=== PATIENT | female | born 1980 | race Caucasian/White ===

== ENCOUNTER 2017-09-03 11:25 | Emergency (ER) | payer OTHER ==
[2017-09-03] MEDS ORDERED: Albuterol-Ipratrop 3 mg / 0.5 (3 ml) UD ONE ×2 (11:44→12:58)
--- NOTE | 2017-09-03 12:04 | C.PDOC ---
History Of Present Illness 36 years old female with PMH asthma complains of shortness of breath that began last night. She states she ran out of albuterol. Denies fever or chest pain. Time Seen by Provider: 09/03/17 11:47 Chief Complaint (Nursing): Shortness Of Breath History Per: Patient History/Exam Limitations: no limitations Onset/Duration Of Symptoms: Days (1) Current Symptoms Are (Timing): Still Present Associated Symptoms: denies: Fever Recent travel outside of the [place]: No Past Medical History Reviewed: Historical Data, Nursing Documentation, Vital Signs Vital Signs: Last Vital Signs Temp Pulse 85 09/03/17 12:45 Resp 18 09/03/17 12:45 BP 99/60 L 09/03/17 12:45 Pulse Ox 98 09/03/17 12:45 - Medical History PMH: Asthma - [facility] Procedures REMOV INTRALUM EAR FB (05/01/14) Family History: States: Unknown Family Hx - Social History Hx Tobacco Use: No Hx Alcohol Use: No Hx Substance Use: No - Immunization History Hx Tetanus Toxoid Vaccination: No Hx Influenza Vaccination: No Hx Pneumococcal Vaccination: No Review Of Systems Constitutional: Negative for: Fever, Chills Respiratory: Positive for: Shortness of Breath, Wheezing. Negative for: Cough Gastrointestinal: Negative for: Nausea, Vomiting, Abdominal Pain, Diarrhea Skin: Negative for: Rash Neurological: Negative for: Weakness, Numbness Physical Exam - Physical Exam Appears: Well, Non-toxic, No Acute Distress Skin: Warm, Dry Head: Atraumatic, Normacephalic Eye(s): bilateral: Normal Inspection, EOMI Ear(s): Bilateral: Normal Nose: Normal, No Discharge, No Epistaxis Oral Mucosa: Moist Throat: Normal, No Erythema, No Exudate Neck: Supple Chest: Symmetrical, No Tenderness Cardiovascular: Rhythm Regular Respiratory: No Decreased Breath Sounds, No Rales, No Rhonchi, Wheezing ( expiratory) Gastrointestinal/Abdominal: No Rebound Extremity: Bilateral: Atraumatic, Normal Color And Temperature, Normal ROM Neurological/Psych: Oriented x3, Normal Speech Gait: Steady Medical Decision Making Medical Decision Making: Administered Duoneb treatment x3 and predinisone On re-eval, patient has no fever and reports feeling better. Lung sounds have improved, no longer wheezing and peak flow better. Patient feels comfortable going home and will be discharged. Rx given. Patient given follow up instructions. Instructed to return to ER if symptoms worsen or new symptoms arise. Disposition Counseled Patient/Family Regarding: Diagnosis, Need For Followup, Rx Given - Disposition Disposition: HOME/ ROUTINE Disposition Time: 13:28 Condition: STABLE Additional Instructions: Follow up with your primary medical doctor or clinic in 2-5 days for further evaluation. Take medications as prescribed. Return to the emergency department at any time if symptoms persist or worsen. Vaya a el ico ortopdico clnica en 1-3 laguna sin falta, para mas evaluacin. Exline los medicamentos tran indicado. Prescriptions: Albuterol 0.083% [Albuterol 0.083% Inhal Veena (2.5 mg/3 ml) UD] 2.5 mg IH Q4 # 100 neb Albuterol HFA [Ventolin HFA 90 mcg/actuation (8 g)] 1 puff IH Q4 #1 puff Instructions: Asthma in Adults Forms: [employer] (Burmese) Print Language: CANADIAN - POA Present On Arrival: None - Clinical Impression Clinical Impression: Active asthma - PA / DIRECTOR APPAREL / Resident Statement MD/DO has reviewed & agrees with the documentation as recorded. - Scribe Statement The provider has reviewed the documentation as recorded by the Neelimaibdung Morales All medical record entries made by the Neel were at my direction and personally dictated by me. I have reviewed the chart and agree that the record accurately reflects my personal performance of the history, physical exam, medical decision making, and the department course for this patient. I have also personally directed, reviewed, and agree with the discharge instructions and disposition.
[2017-09-03] MEDS ORDERED: Albuterol-Ipratrop 3 mg / 0.5 (3 ml) UD IH SCH (12:15)
[2017-09-03 12:45] VITALS: BP 99/60; PULSE 85; RESP 18; O2SAT 98
== END 2017-09-03 13:38 | disposition home or self-care (01) ==
LOC: C.ER 11:25
DX: J45.909 Unspecified asthma, uncomplicated (principal)

== ENCOUNTER 2017-09-10 00:19 | Emergency (ER) | payer SELFPAY ==
[2017-09-10] MEDS ORDERED: Albuterol-Ipratrop 3 mg / 0.5 (3 ml) UD ONE (00:38)
[2017-09-10] MEDS ORDERED: Albuterol-Ipratrop 3 mg / 0.5 (3 ml) UD INH STA (00:39)
--- NOTE | 2017-09-10 00:40 | C.PDOC ---
History Of Present Illness Patient is a 36 y/o female who presents to the ED with a complaint of SOB worsening over the last 2 weeks. Patient notes worsening symptoms tonight, prompting visit. Currently speaking in complete sentences in ED, admitting to tolerating PO. Patient has no other physical complaints at this time. Time Seen by Provider: 09/10/17 00:39 Chief Complaint (Nursing): Respiratory Distress History Per: Patient History/Exam Limitations: no limitations Onset/Duration Of Symptoms: Days (2 weeks), Worse Since Current Symptoms Are (Timing): Still Present Initiating Event: Upper Respiratory Illness Exacerbating Factor(s): Coughing Current Respiratory Medications: See Home Med List Severity: Moderate Pain Scale Rating Of: 4 Associated Symptoms: denies: Fever, Chills, Sweating Reports Recently: Seen In ED, Treated By A Physician Recent travel outside of the [place]: No Additional History Per: Patient Past Medical History Reviewed: Historical Data, Nursing Documentation, Vital Signs Vital Signs: Last Vital Signs Temp 98.4 F 09/10/17 00:31 Pulse 90 09/10/17 00:31 Resp 22 09/10/17 01:23 BP 119/83 09/10/17 00:31 Pulse Ox 95 09/10/17 01:39 - Medical History PMH: Asthma Surgical History: No Surg Hx - [facility] Procedures REMOV INTRALUM EAR FB (05/01/14) Family History: States: No Known Family Hx - Social History Hx Tobacco Use: No Hx Alcohol Use: No Hx Substance Use: No - Immunization History Hx Tetanus Toxoid Vaccination: No Hx Influenza Vaccination: No Hx Pneumococcal Vaccination: No Review Of Systems Constitutional: Negative for: Fever, Chills ENT: Negative for: Throat Pain Cardiovascular: Negative for: Chest Pain Respiratory: Positive for: Shortness of Breath Musculoskeletal: Negative for: Back Pain Skin: Negative for: Rash Neurological: Negative for: Weakness Psych: Negative for: Anxiety Physical Exam - Physical Exam Appears: Non-toxic Skin: Warm, Dry Head: Normacephalic Eye(s): bilateral: Normal Inspection Oral Mucosa: Moist Throat: Other (oropharynx clear) Neck: Supple Chest: Symmetrical Cardiovascular: Rhythm Regular, No Murmur Respiratory: No Accessory Muscle Use, No Rales, No Rhonchi, Wheezing (diffuse ) Gastrointestinal/Abdominal: Soft, No Tenderness, No Distention Back: No CVA Tenderness Extremity: No Tenderness Neurological/Psych: Oriented x3, Normal Speech, Normal Cognition Gait: Steady ED Course And Treatment - Laboratory Results Result Diagrams: 09/10/17 01:14 09/10/17 01:14 ECG: Interpreted By Me, Viewed By Me ECG Rhythm: Sinus Rhythm (72), 1st Degree HB, Nonspecific Changes O2 Sat by Pulse Oximetry: 95 Pulse Ox Interpretation: Normal - Radiology CXR: Interpreted by Me, Viewed By Me Progress Note: Blood work, EKG, and CXR ordered. Nebulizer treatment, duoneb, medrol, and IV fluids administered. Reevaluation Time: 02:53 Reassessment Condition: Improved Critical Care Time - Critical Care Note Total Time (in mins): 30 Documented critical care: time excludes all time spent performing seperately billable procedures. Disposition Counseled Patient/Family Regarding: Studies Performed, Diagnosis, Need For Followup, Rx Given - Disposition Referrals: [facility] [Outside] [facility] [Outside] Disposition: HOME/ ROUTINE Disposition Time: 00:40 Condition: FAIR Additional Instructions: Please return if symptoms recur Prescriptions: Prednisone [Deltasone] 20 mg PO DAILY #5 tablet Instructions: Asthma, Adult (DC) Forms: [employer] (Mongolian) - Clinical Impression Clinical Impression: Exacerbation of asthma - Scribe Statement The provider has reviewed the documentation as recorded by the Scribe Jessica Alvarez All medical record entries made by the Scribe were at my direction and personally dictated by me. I have reviewed the chart and agree that the record accurately reflects my personal performance of the history, physical exam, medical decision making, and the department course for this patient. I have also personally directed, reviewed, and agree with the discharge instructions and disposition.
[2017-09-10] MEDS ORDERED: Sodium Chloride 0.9% 1,000 ML IV ONE (00:50)
[2017-09-10] MEDS ORDERED: Sodium Chloride 0.9% 1,000 ML ONE (01:18)
[2017-09-10 01:21] LABS: BASO # 0.1 K/uL (0.0-0.2); BASO % 1.2 % (0.0-2.0); EOS # 0.8 K/uL (0.0-0.7); EOS % 8.8 % (0.0-4.0); HEMOGLOBIN 13.7 g/dL (11.0-16.0); LYMPH # 2.8 K/uL (1.0-4.3); LYMPH % 32.8 % (20.0-40.0); MEAN CELL VOLUME 91.6 fL (81.0-99.0); MEAN CORPUSCULAR HEMOGLOBIN 31.6 pg (27.0-31.0); MEAN CORPUSCULAR HGB CONC 34.6 g/dL (33.0-37.0); MEAN PLATELET VOLUME 8.1 fL (7.2-11.7); MONO # 0.5 K/uL (0.0-0.8); MONO % 5.9 % (0.0-10.0); NEUT # 4.4 K/uL (1.8-7.0); NEUT % 51.3 % (50.0-75.0); NRBC % 0.1 % (0.0-2.0); RBC 4.33 Mil/uL (3.80-5.20); RED CELL DISTRIBUTION WIDTH 13.2 % (11.5-14.5); WHITE BLOOD COUNT 8.6 K/uL (4.8-10.8)
[2017-09-10 01:30] LABS: ALB/GLOB RATIO 1.2 (1.0-2.1); ALBUMIN 4.1 g/dL (3.5-5.0); ALT/SGPT 18 U/L (9-52); AST/SGOT 20 U/L (14-36); BLOOD UREA NITROGEN 11 mg/dL (7-17); CALCIUM 8.9 mg/dl (8.6-10.4); GFR AFRICAN-AMERICAN > 60; GFR NON-AFRICAN AMERICAN > 60
[2017-09-10 01:32] LABS: VENOUS BLOOD GAS BASE EXCESS -1.4 mmol/L (0.0-2.0); VENOUS BLOOD GAS PCO2 49 mmHg (40-60); VENOUS BLOOD GAS PO2 24 mm/Hg (30-55); VENOUS BLOOD PH 7.32 (7.32-7.43)
[2017-09-10 03:08] VITALS: BP 101/64; PULSE 79; RESP 18; TEMP 98.5; O2SAT 97
--- NOTE | 2017-09-10 09:31 | RAD ---
Chest x-ray single frontal view History: Shortness of breath. Comparison: None available. Findings: No focal infiltrate or effusion. Heart size within normal limits. Bibasilar breast and nipple shadows. Impression: No focal infiltrate or effusion.
== END 2017-09-10 03:08 | disposition home or self-care (01) ==
LOC: C.ER 00:19
DX: J45.901 Unspecified asthma with (acute) exacerbation (principal)
CPT/HCPCS: 71045; 80053; 82803; 83735; 85025; 94150; 96361; 96374; 99284; J2930; J7040

== ENCOUNTER 2018-03-10 07:12 | Emergency (ER) | payer OTHER ==
[2018-03-10] MEDS ORDERED: Albuterol-Ipratrop 3 mg / 0.5 (3 ml) UD INH STA ×3 (07:17→09:11)
[2018-03-10 07:21] VITALS: BMI 21.3
--- NOTE | 2018-03-10 07:42 | C.PDOC ---
History Of Present Illness 37 y/o female with hx asthma, no intubations, c/o worsening asthma symptoms x 3- 4 days, temp to 100.4, cough with green sputum. pt uses nebulizer tx only and ran out yesterday. pt not steroid dependent, last ED visit in sep 04, max peak flow unknown. Time Seen by Provider: 03/10/18 07:29 Chief Complaint (Nursing): Shortness Of Breath History Per: Patient, Family History/Exam Limitations: no limitations Onset/Duration Of Symptoms: Days (3) Current Symptoms Are (Timing): Worse Initiating Event: Upper Respiratory Illness, Out Of Medications Quality: Tightness Current Respiratory Medications: Albuterol Severity: Moderate Associated Symptoms: Fever, Productive Cough Past Medical History Reviewed: Historical Data, Nursing Documentation, Vital Signs Vital Signs: Last Vital Signs Temp 98.2 F 03/10/18 10:42 Pulse 94 H 03/10/18 10:42 Resp 16 03/10/18 10:42 BP 111/70 03/10/18 10:42 Pulse Ox 97 03/10/18 10:43 - Medical History PMH: Asthma - [facility] Procedures REMOV INTRALUM EAR FB (05/01/14) Family History: States: Unknown Family Hx - Social History Hx Tobacco Use: No Hx Alcohol Use: No Hx Substance Use: No - Immunization History Hx Tetanus Toxoid Vaccination: No Hx Influenza Vaccination: No Hx Pneumococcal Vaccination: No Review Of Systems Constitutional: Positive for: Fever. Negative for: Chills ENT: Negative for: Throat Pain Cardiovascular: Positive for: Chest Pain (tightness c/w asthma exacerbation) Respiratory: Positive for: Cough, Shortness of Breath, Sputum (green) Gastrointestinal: Negative for: Abdominal Pain Skin: Negative for: Rash Neurological: Negative for: Weakness, Numbness Physical Exam - Physical Exam Appears: Non-toxic, No Acute Distress Skin: Warm, Dry Head: Atraumatic, Normacephalic Oral Mucosa: Moist Chest: Symmetrical, No Deformity, No Tenderness Cardiovascular: Rhythm Regular, No Murmur Respiratory: No Accessory Muscle Use, No Stridor, Wheezing (bilateral expiratory ), Other (coarse breath sounds diffusely) Gastrointestinal/Abdominal: Soft, No Tenderness Extremity: No Pedal Edema, No Calf Tenderness Neurological/Psych: Oriented x3, Normal Speech, Normal Cognition ED Course And Treatment - Laboratory Results Result Diagrams: 03/10/18 07:56 03/10/18 07:56 Urine POC: Negative ECG: Interpreted By Me, Viewed By Me ECG Rhythm: Sinus Rhythm ECG Interpretation: Normal Interpretation Of ECG: nsr, no st-t changes Rate From EC O2 Sat by Pulse Oximetry: 97 Pulse Ox Interpretation: Normal - Radiology CXR: Viewed By Me, Read By Radiologist CXR Interpretation: Yes: No Acute Disease Medical Decision Making Medical Decision Makin37 y/o f with asthma with exacerbation and cough with green sputum- nebs, ekg, steroids, labs cxr, re-eval. 0822 pt with more prominent bilateral wheezing after first neb tx with less coarse sounds. will order further neb tx. pf 130 with good effort. , 0953 pt after 3rd neb tx still with bilateral wheezing., decreased chest tightness. pf 160. pt offered admission for asthma exacerbation and is considering. 1025 pt agrees to stay. discussed with Dr Javed Lynne, will admit to his service. 1042 pt denies use of oral contraceptive pill and depo provera shots Disposition Discussed With Dr.: Tristan Lynne Doctor Will See Patient In The: Office - Disposition Disposition: HOSPITALIZED Disposition Time: 10:26 Condition: STABLE - Clinical Impression Clinical Impression: Exacerbation of asthma, Respiratory tract infection
[2018-03-10] MEDS ORDERED: Albuterol-Ipratrop 3 mg / 0.5 (3 ml) UD ONE ×2 (07:48→09:24)
[2018-03-10 08:02] LABS: BASO # 0.1 K/uL (0.0-0.2); BASO % 0.8 % (0.0-2.0); EOS # 0.5 K/uL (0.0-0.7); EOS % 6.4 % (0.0-4.0); HEMOGLOBIN 12.7 g/dL (11.0-16.0); LYMPH # 1.2 K/uL (1.0-4.3); LYMPH % 17.5 % (20.0-40.0); MEAN CELL VOLUME 93.5 fL (81.0-99.0); MEAN CORPUSCULAR HEMOGLOBIN 32.8 pg (27.0-31.0); MEAN CORPUSCULAR HGB CONC 35.1 g/dL (33.0-37.0); MEAN PLATELET VOLUME 8.9 fL (7.2-11.7); MONO # 0.7 K/uL (0.0-0.8); MONO % 9.4 % (0.0-10.0); NEUT # 4.7 K/uL (1.8-7.0); NEUT % 65.9 % (50.0-75.0); RBC 3.88 Mil/uL (3.80-5.20); RED CELL DISTRIBUTION WIDTH 12.7 % (11.5-14.5); WHITE BLOOD COUNT 7.1 K/uL (4.8-10.8)
[2018-03-10 08:17] LABS: ALB/GLOB RATIO 1.2 (1.0-2.1); ALBUMIN 4.4 g/dL (3.5-5.0); CALCIUM 8.9 mg/dl (8.6-10.4); GFR NON-AFRICAN AMERICAN > 60
[2018-03-10 08:18] LABS: ALT/SGPT 21 U/L (9-52); AST/SGOT 31 U/L (14-36); BLOOD UREA NITROGEN 6 mg/dL (7-17)
--- NOTE | 2018-03-10 09:01 | RAD ---
Date of service: 03/10/2018 HISTORY: cough green sputum, wheezing COMPARISON: No prior. TECHNIQUE: Chest PA and lateral FINDINGS: LUNGS: No active pulmonary disease. PLEURA: No significant pleural effusion identified. No pneumothorax apparent. CARDIOVASCULAR: Normal. OSSEOUS STRUCTURES: Very minor degenerative spondylosis thoracic spine VISUALIZED UPPER ABDOMEN: Normal. OTHER FINDINGS: None. IMPRESSION: No active disease.
--- NOTE | 2018-03-10 12:39 | CP.PCM.HP ---
<Dez Pederson - Last Filed: 03/10/18 13:31> History of Present Illness - History of Present Illness History of Present Illness: medicine note for hospitalist service 37 y/o F presents to the ED with an acute asthma exacerbation. Patient explains that her symptoms began 4 days ago, with the pain being rated as a 10/10, and have slowly diminished over the past few days leading up to today; she describes her current pain as a tightness and rates it as a 2/10. Patient goes on to say that she has a feeling of something being stuck in her chest. Patient also comments that she experienced abdominal pain, which she categorized as inflammatory in nature, during her admission to the ED but has since subsided. Patient has an albuterol inhaler and has been using her family s nebulizer device to self medicate for her asthma exacerbation, however the patient has no formal asthma medications. Patient also comments that dust and seasonal changes make her asthma worse. Patient does not have a PMD and has not been evaluated by a high scaler. 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 PMHx: N/A PSHx: Breast Reduction FMHx: -Father: DM SocHx: denies tobacco use/ expose, etoh, drugs, Allergies: Seasonal (Summer to fall transition, Winter to spring transition), Dust, Pollen Full Code Present on Admission - Present on Admission Any Indicators Present on Admission: No Past Patient History - Past Social History Smoking Status: Never Smoked - PULMONARY Hx Asthma: Yes - PSYCHIATRIC Hx Substance Use: No - SURGICAL HISTORY Hx Surgeries: Yes Other/Comment: B/L BREAST REDUCTION PER PATIENT - ANESTHESIA Hx Anesthesia: Yes Meds Allergies/Adverse Reactions: Allergies Allergy/AdvReac Type Severity Reaction Status Date / Time No Known Allergies Allergy Verified 03/10/18 07:16 Physical Exam - Constitutional Appears: Well, Non-toxic, No Acute Distress, Younger Than Stated Age - Head Exam Head Exam: ATRAUMATIC, NORMAL INSPECTION, NORMOCEPHALIC - Eye Exam Eye Exam: EOMI, Normal appearance - ENT Exam ENT Exam: Mucous Membranes Moist Additional comments: flared nostrils - Neck Exam Additional comments: sternal notching - Respiratory Exam Respiratory Exam: Wheezes ([place] all medina worse w expirations) - Cardiovascular Exam Cardiovascular Exam: RRR, +S1, +S2 - GI/Abdominal Exam GI & Abdominal Exam: Normal Bowel Sounds, Soft. absent: Tenderness - Extremities Exam Extremities exam: Positive for: normal capillary refill, normal inspection, pedal pulses present - Back Exam Back exam: NORMAL INSPECTION - Neurological Exam Neurological exam: Alert, CN II-XII Intact, Normal Gait, Oriented x3 - Psychiatric Exam Psychiatric exam: Normal Affect, Normal Mood - Skin Skin Exam: Dry, Intact, Pallor, Warm Results - Vital Signs Recent Vital Signs: Last Vital Signs Temp 98.2 F 03/10/18 10:42 Pulse 94 H 03/10/18 10:42 Resp 16 03/10/18 10:42 BP 111/70 03/10/18 10:42 Pulse Ox 97 03/10/18 10:44 - Labs Result Diagrams: 03/10/18 07:56 03/10/18 07:56 Labs: Laboratory Results - last 24 hr 03/10/18 03/10/18 07:56 07:56 WBC 7.1 RBC 3.88 Hgb 12.7 Hct 36.3 MCV 93.5 MCH 32.8 H MCHC 35.1 RDW 12.7 Plt Count 231 MPV 8.9 Neut % (Auto) 65.9 Lymph % (Auto) 17.5 L [place] % (Auto) 9.4 Eos % (Auto) 6.4 H Baso % (Auto) 0.8 Neut # (Auto) 4.7 Lymph # (Auto) 1.2 [place] # (Auto) 0.7 Eos # (Auto) 0.5 Baso # (Auto) 0.1 Sodium 143 Potassium 4.2 Chloride 104 Carbon Dioxide 29 Anion Gap 14 BUN 6 L Creatinine 0.5 L Est GFR ( Amer) > 60 Est GFR (Non-Af Amer) > 60 Random Glucose 105 Calcium 8.9 Total Bilirubin 0.7 AST 31 ALT 21 Alkaline Phosphatase 70 Total Protein 8.0 Albumin 4.4 Globulin 3.6 Albumin/Globulin Ratio 1.2 Assessment & Plan - Assessment and Plan (Free Text) Assessment: 37yo Female with a PMH of asthma presents with acute asthma exacerbation for 4 days. Plan: Asthma Exacerbation -soluMedrol 60mg q8 -advair 250/50 diskus 1 puff BID -Duonebs Rq6h 1pm -1pm tmrw -Singulair 10mg PO QD -Fexofenadine 180mg PO qd -SOLDERING MACHINE FEEDER: neg -EKG: nsr -f/u am labs PPX -no dvt prophylaxis indicated -pepcid 20mg PO daily <Tristan Lynne - Last Filed: 03/11/18 17:58> Results - Vital Signs Recent Vital Signs: Last Vital Signs Temp 98.3 F 03/10/18 14:54 Pulse 84 03/10/18 14:54 Resp 22 03/10/18 14:54 BP 107/63 03/10/18 14:54 Pulse Ox 94 L 03/10/18 14:54 - Labs Result Diagrams: 03/10/18 07:56 03/10/18 07:56 Attending/Attestation - Attestation I have personally seen and examined this patient.: No I have fully participated in the care of the patient.: Yes I have reviewed all pertinent clinical information: Yes Notes (Text): 03/11/18 17:57 This patient signed AMA before I had the opportunity to see her. However, her history, physical by the resident, and orders were discussed with the resident after he had seen her. Tristan Lynne D.O.
[2018-03-10 14:56] VITALS: BP 107/63; PULSE 84; RESP 22; TEMP 98.3; O2SAT 94
--- NOTE | 2018-03-10 15:39 | CP.PCM.DIS ---
Provider - Provider Date of Admission: 03/10/18 10:27 Attending physician: Tristan Lynne MD Consults: 45 Time Spent in preparation of Discharge (in minutes): 45 Hospital Course - Lab Results Lab Results: Most Recent Lab Values WBC 7.1 K/uL (4.8-10.8) 03/10/18 07:56 RBC 3.88 Mil/uL (3.80-5.20) 03/10/18 07:56 Hgb 12.7 g/dL (11.0-16.0) 03/10/18 07:56 Hct 36.3 % (34.0-47.0) 03/10/18 07:56 MCV 93.5 fL (81.0-99.0) 03/10/18 07:56 MCH 32.8 pg (27.0-31.0) H 03/10/18 07:56 MCHC 35.1 g/dL (33.0-37.0) 03/10/18 07:56 RDW 12.7 % (11.5-14.5) 03/10/18 07:56 Plt Count 231 K/uL (130-400) 03/10/18 07:56 MPV 8.9 fL (7.2-11.7) 03/10/18 07:56 Neut % (Auto) 65.9 % (50.0-75.0) 03/10/18 07:56 Lymph % (Auto) 17.5 % (20.0-40.0) L 03/10/18 07:56 [place] % (Auto) 9.4 % (0.0-10.0) 03/10/18 07:56 Eos % (Auto) 6.4 % (0.0-4.0) H 03/10/18 07:56 Baso % (Auto) 0.8 % (0.0-2.0) 03/10/18 07:56 Neut # (Auto) 4.7 K/uL (1.8-7.0) 03/10/18 07:56 Lymph # (Auto) 1.2 K/uL (1.0-4.3) 03/10/18 07:56 [place] # (Auto) 0.7 K/uL (0.0-0.8) 03/10/18 07:56 Eos # (Auto) 0.5 K/uL (0.0-0.7) 03/10/18 07:56 Baso # (Auto) 0.1 K/uL (0.0-0.2) 03/10/18 07:56 Sodium 143 mmol/L (132-148) 03/10/18 07:56 Potassium 4.2 mmol/L (3.6-5.2) 03/10/18 07:56 Chloride 104 mmol/L (98-107) 03/10/18 07:56 Carbon Dioxide 29 mmol/L (22-30) 03/10/18 07:56 Anion Gap 14 (10-20) 03/10/18 07:56 BUN 6 mg/dL (7-17) L 03/10/18 07:56 Creatinine 0.5 mg/dL (0.7-1.2) L 03/10/18 07:56 Est GFR ( Amer) > 60 03/10/18 07:56 Est GFR (Non-Af Amer) > 60 03/10/18 07:56 Random Glucose 105 mg/dL (65-105) 03/10/18 07:56 Calcium 8.9 mg/dl (8.6-10.4) 03/10/18 07:56 Total Bilirubin 0.7 mg/dL (0.2-1.3) 03/10/18 07:56 AST 31 U/L (14-36) 03/10/18 07:56 ALT 21 U/L (9-52) 03/10/18 07:56 Alkaline Phosphatase 70 U/L (38-126) 03/10/18 07:56 Total Protein 8.0 g/dL (6.3-8.3) 03/10/18 07:56 Albumin 4.4 g/dL (3.5-5.0) 03/10/18 07:56 Globulin 3.6 gm/dL (2.2-3.9) 03/10/18 07:56 Albumin/Globulin Ratio 1.2 (1.0-2.1) 03/10/18 07:56 - Hospital Course Hospital Course: PATIENT LEFT AMA medicine note for hospitalist service 37 y/o F presents to the ED with an acute asthma exacerbation. Patient explains that her symptoms began 4 days ago, with the pain being rated as a 10/10, and have slowly diminished over the past few days leading up to today; she describes her current pain as a tightness and rates it as a 2/10. Patient goes on to say that she has a feeling of something being stuck in her chest. Patient also comments that she experienced abdominal pain, which she categorized as inflammatory in nature, during her admission to the ED but has since subsided. Patient has an albuterol inhaler and has been using her family s nebulizer device to self medicate for her asthma exacerbation, however the patient has no formal asthma medications. Patient also comments that dust and seasonal changes make her asthma worse. Patient does not have a PMD and has not been evaluated by a intrusion analyst. 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 PMHx: N/A PSHx: Breast Reduction FMHx: -Father: DM SocHx: denies tobacco use/ expose, etoh, drugs, Allergies: Seasonal (Summer to fall transition, Winter to spring transition), Dust, Pollen Full Code Present on Admission - Present on Admission Any Indicators Present on Admission: No Past Patient History - Past Social History Smoking Status: Never Smoked - PULMONARY Hx Asthma: Yes - PSYCHIATRIC Hx Substance Use: No - SURGICAL HISTORY Hx Surgeries: Yes Other/Comment: B/L BREAST REDUCTION PER PATIENT - ANESTHESIA Hx Anesthesia: Yes Discharge Exam - Head Exam Head Exam: ATRAUMATIC, NORMAL INSPECTION, NORMOCEPHALIC - Additional Findings Additional findings: - Constitutional Appears: Well, Non-toxic, No Acute Distress, Younger Than Stated Age - Head Exam Head Exam: ATRAUMATIC, NORMAL INSPECTION, NORMOCEPHALIC - Eye Exam Eye Exam: EOMI, Normal appearance - ENT Exam ENT Exam: Mucous Membranes Moist Additional comments: flared nostrils - Neck Exam Additional comments: sternal notching - Respiratory Exam Respiratory Exam: Wheezes ([place] all medina worse w expirations) - Cardiovascular Exam Cardiovascular Exam: RRR, +S1, +S2 - GI/Abdominal Exam GI & Abdominal Exam: Normal Bowel Sounds, Soft. absent: Tenderness - Extremities Exam Extremities exam: Positive for: normal capillary refill, normal inspection, pedal pulses present - Back Exam Back exam: NORMAL INSPECTION - Neurological Exam Neurological exam: Alert, CN II-XII Intact, Normal Gait, Oriented x3 - Psychiatric Exam Psychiatric exam: Normal Affect, Normal Mood - Skin Skin Exam: Dry, Intact, Pallor, Warm Discharge Plan - Follow Up Plan Condition: STABLE Disposition: HOME/ ROUTINE Additional Instructions: F/u with [facility]
--- NOTE | 2018-03-10 17:51 | CARD ---
APPROVED REPORT Date of service: 03/10/2018 EKG Measurement [id number] <Conclusion> Normal sinus rhythm Normal ECG
== END 2018-03-10 15:38 | disposition left against medical advice (07) ==
LOC: C.ER 07:12 → UNDOADMOB 10:27 → C.9E 10:27 → C.3T 14:47 → C.9E 14:47
DX: J45.901 Unspecified asthma with (acute) exacerbation (principal); J98.8 Other specified respiratory disorders
CPT/HCPCS: 71046; 80053; 85025; 93005; 94640; 96374; 99285; J2930